=== PATIENT | male | born 1945 | race Caucasian/White ===

== ENCOUNTER 2017-01-18 13:14 | Inpatient (IN) | payer OTHER, BC ==
[~2017-01-18] VITALS: Ht 167.6 cm; Wt 69.6 kg
[~2017-01-18 13:14] MED LIST: APRESOLINE25 MG PO; B-COMPLEX-VITA1 EACH PO; BUMEX2 MG PO; COENZYME Q10200 M2 PO; COUMADIN2 MG PO; DAILY VALUE1 EACH PO; KLOR-CON M2020 MEQ PO; LANOXIN125 MCG PO; METOLAZONE2.5 MG PO; NORVASC10 MG PO; PROCRIT40000 UNI1 SC; ROCALTROL0.25 MCG PO; TOPROL XL50 MG PO
[2017-01-18 13:41] VITALS: BP 148/68
[2017-01-18 14:00] LABS: MCH 28.2 PG (29.0-34.0); MEAN PLAT.VOLUME 9.8 uM^3 (9.0-12.4); PLATELET COUNT 113 K/uL (156-360); RBC DIS.WIDTH-SD 54.4 % (39-53); RED BLOOD COUNT 3.41 M/uL (4.00-5.50); WHITE BLOOD COUNT 6.2 K/uL (4.1-10.2)
[2017-01-18 14:21] LABS: PROTHROMBIN TIME 21.9 (9.2-11.2); PTT 49.9 (25-32)
[2017-01-18 14:22] LABS: INTER. NORMALIZED RATIO 2.1
[2017-01-18 14:44] LABS: ANION GAP 13 MEQ/L (2-14); CHLORIDE 89 MEQ/L (99-109); GFR ESTIMATE (CALCULATED) 20 mL/min/; GLUCOSE 99 mg/dL (70-99); POTASSIUM 3.2 MEQ/L (3.7-5.4); SAMPLE HEMOLYSIS CHECK 0; SAMPLE ICTERIC CHECK 0; SAMPLE LIPEMIA CHECK 0; SODIUM 137 MEQ/L (136-147)
[2017-01-18 14:45] LABS: UREA NITROGEN (BUN) 124 mg/dL (9-23)
[2017-01-18] MEDS ORDERED: NORCO 5/3251 TABLET PO (17:27)
[2017-01-18 18:10] VITALS: BP 130/60
[2017-01-18 19:26] VITALS: BP 136/63
[2017-01-18 21:43] VITALS: BP 133/61
[2017-01-19] VITALS (10 sets, daily range): BP systolic 110–143; BP diastolic 52–66
[2017-01-19 06:44] LABS: HEMATOCRIT 27.6 % (38.0-50.0); MCH 28.4 PG (29.0-34.0); MCHC 31.9 G/DL (30.0-36.0); MEAN PLAT.VOLUME 10.9 uM^3 (9.0-12.4); PLATELET COUNT 128 K/uL (156-360); RBC DIS.WIDTH-CV 17.4 % (11.8-14.6); RBC DIS.WIDTH-SD 56.3 % (39-53); WHITE BLOOD COUNT 9.5 K/uL (4.1-10.2)
[2017-01-19 07:19] LABS: INTER. NORMALIZED RATIO 1.8; PROTHROMBIN TIME 18.9 (9.2-11.2); PTT 37.2 (25-32)
[2017-01-20 07:20] VITALS: BP 144/57
[2017-01-20 07:38] LABS: HEMATOCRIT 26.3 % (38.0-50.0); MCH 27.9 PG (29.0-34.0); MCHC 31.2 G/DL (30.0-36.0); MCV 89.5 FL (86-99); MEAN PLAT.VOLUME 10.6 uM^3 (9.0-12.4); PLATELET COUNT 147 K/uL (156-360); RBC DIS.WIDTH-CV 17.5 % (11.8-14.6); RBC DIS.WIDTH-SD 56.2 % (39-53); RED BLOOD COUNT 2.94 M/uL (4.00-5.50)
[2017-01-20 07:53] LABS: INTER. NORMALIZED RATIO 1.7; PROTHROMBIN TIME 17.8 (9.2-11.2); PTT 38.1 (25-32)
[2017-01-20 08:23] LABS: ANION GAP 8 MEQ/L (2-14); CHLORIDE 85 MEQ/L (99-109); GFR ESTIMATE (CALCULATED) 17 mL/min/; GLUCOSE 107 mg/dL (70-99); MAGNESIUM 2.6 mg/dl (1.3-2.7); POTASSIUM 3.7 MEQ/L (3.7-5.4); SAMPLE HEMOLYSIS CHECK 0; SAMPLE ICTERIC CHECK 0; SAMPLE LIPEMIA CHECK 0; SODIUM 131 MEQ/L (136-147)
[2017-01-20 08:24] LABS: UREA NITROGEN (BUN) 123 mg/dL (9-23)
[2017-01-20 11:22] VITALS: BP 132/63
[2017-01-20] MEDS ORDERED: LOVENOX80 MG/0.8 SC (14:12)
[2017-01-20 15:35] VITALS: BP 123/60
== END 2017-01-20 17:06 | disposition home or self-care (01) | DRG 939 ==
LOC: SDC 13:14 → 2EAST 19:42 → 2SOUTH 19:42 → 2EAST 20:51
PROVIDERS: Surgery
PROC: 0WHG43Z Insertion of Infusion Device into Peritoneal Cavity, Percutaneous Endoscopic Approach (ICD-10-PCS; 2017-01-18)
PROC: 0HQ7XZZ Repair Abdomen Skin, External Approach (ICD-10-PCS; principal; 2017-01-20)
DX: R79.1 Abnormal coagulation profile (principal); L76.22 Postprocedural hemorrhage of skin and subcutaneous tissue following other procedure; T45.515A Adverse effect of anticoagulants, initial encounter; I13.2 Hypertensive heart and chronic kidney disease with heart failure and with stage 5 chronic kidney disease, or end stage renal disease; N18.6 End stage renal disease; I50.9 Heart failure, unspecified; I48.91 Unspecified atrial fibrillation; K21.9 Gastro-esophageal reflux disease without esophagitis; I27.2 Other secondary pulmonary hypertension; E78.5 Hyperlipidemia, unspecified; G47.30 Sleep apnea, unspecified; Z99.81 Dependence on supplemental oxygen; Z87.891 Personal history of nicotine dependence; Z95.2 Presence of prosthetic heart valve; Z79.01 Long term (current) use of anticoagulants; Z86.14 Personal history of Methicillin resistant Staphylococcus aureus infection
CPT/HCPCS: 80048; 83735; 84100; 85027; 85610; 85730; 87641; 94799; C1750; G0378; J0330; J0690; J2405; J2597; J2710; J3010; J7040; J7050; S0020

== ENCOUNTER 2017-01-22 13:50 | Inpatient (IN) | payer OTHER, BC ==
[~2017-01-22] VITALS: Ht 165.1 cm; Wt 70.9 kg
[~2017-01-22 13:50] MED LIST changes: +LOVENOX80 MG/0.8 SC; +NORCO 5/3251 TABLET PO
[2017-01-22 14:26] LABS: HEMATOCRIT 23.7 % (38.0-50.0); MCHC 31.2 G/DL (30.0-36.0); MCV 89.8 FL (86-99); PLATELET COUNT 133 K/uL (156-360); RBC DIS.WIDTH-CV 17.8 % (11.8-14.6); RBC DIS.WIDTH-SD 57.3 % (39-53); RED BLOOD COUNT 2.64 M/uL (4.00-5.50); WHITE BLOOD COUNT 6.5 K/uL (4.1-10.2)
[2017-01-22 14:34] LABS: CHLORIDE 91 mEq/L (99-109); POTASSIUM 3.7 mEq/L (3.7-5.4); SODIUM 136 mEq/L (136-147)
[2017-01-22 14:35] LABS: INTER. NORMALIZED RATIO 1.4; PROTHROMBIN TIME 14.8 (9.2-11.2)
[2017-01-22 14:37] LABS: ANION GAP 13 MEQ/L (2-14)
[2017-01-22 14:39] LABS: GLUCOSE 169 mg/dL (70-99)
[2017-01-22 14:40] LABS: GFR ESTIMATE (CALCULATED) 15 mL/min/
[2017-01-22 14:46] LABS: TROP-I INTERPRETATION NEGATIVE; TROPONIN-I 0.05 ng/mL (0.0-0.30)
[2017-01-22 14:57] LABS: UREA NITROGEN (BUN) 150 mg/dL (9-23)
[2017-01-22] MEDS ORDERED: POTASSIUM CHLO10 ME4 PO (15:28)
[2017-01-22] MEDS ORDERED: ENOXAPARIN80 MG/0.8 SC (15:29)
[2017-01-22 16:24] VITALS: BP 155/65
[2017-01-23 00:05] VITALS: BP 134/63
[2017-01-23 06:34] LABS: HEMATOCRIT 23.1 % (38.0-50.0); MCH 28.7 PG (29.0-34.0); MCHC 31.6 G/DL (30.0-36.0); MCV 90.9 FL (86-99); MEAN PLAT.VOLUME 10.3 uM^3 (9.0-12.4); PLATELET COUNT 133 K/uL (156-360); RBC DIS.WIDTH-CV 18.4 % (11.8-14.6); RBC DIS.WIDTH-SD 59.2 % (39-53); RED BLOOD COUNT 2.54 M/uL (4.00-5.50)
[2017-01-23 07:41] LABS: ANION GAP 10 MEQ/L (2-14); CHLORIDE 92 MEQ/L (99-109); GFR ESTIMATE (CALCULATED) 18 mL/min/; MAGNESIUM 2.5 mg/dl (1.3-2.7); POTASSIUM 3.8 MEQ/L (3.7-5.4); SAMPLE HEMOLYSIS CHECK 0; SAMPLE ICTERIC CHECK 0; SAMPLE LIPEMIA CHECK 0; SODIUM 137 MEQ/L (136-147)
[2017-01-23 07:42] LABS: GLUCOSE 120 mg/dL (70-99); UREA NITROGEN (BUN) 117 mg/dL (9-23)
[2017-01-23 08:41] VITALS: BP 149/70
[2017-01-23 10:24] LABS: INTER. NORMALIZED RATIO 1.5; PROTHROMBIN TIME 15.6 (9.2-11.2)
[2017-01-23 11:23] LABS: HBSG INDEX 0.21
[2017-01-23 11:24] LABS: HPCA INDEX 0.18
[2017-01-23 11:25] LABS: AHBS INDEX 0; HEPATITIS B SURFACE ANTIBODY Nonreactive
[2017-01-23 11:30] LABS: ANTI-HEPATITIS B CORE (TOTAL) Nonreactive; HBCT INDEX 0.09
[2017-01-23 13:21] LABS: INTER. NORMALIZED RATIO 1.5; PROTHROMBIN TIME 15.7 (9.2-11.2)
[2017-01-23 16:30] VITALS: BP 129/60
[2017-01-23 22:53] VITALS: BP 139/63
[2017-01-24 04:00] VITALS: BP 126/61
[2017-01-24 07:06] VITALS: BP 150/67
[2017-01-24 07:45] LABS: EOSINOPHIL (%) 0.7 % (0-5); HEMATOCRIT 23.9 % (38.0-50.0); IMMATURE GRANULOCYTE (%) 0.5 % (0.0-0.7); INSTRUMENT ABS NEUTROPHIL CT 4.7 K/uL; LYMPHOCYTE COUNT 0.3 K/uL (1.0-2.8); MCH 28.6 PG (29.0-34.0); MCHC 31.4 G/DL (30.0-36.0); MCV 91.2 FL (86-99); MEAN PLAT.VOLUME 10.2 uM^3 (9.0-12.4); MONOCYTE (%) 16.8 % (3-12); NEUTROPHIL (%) 77.3 % (45-76); NEUTROPHIL COUNT 4.7 K/uL (1.8-6.4); NRBC (%) 0.3 /100 WBC (0-0); PLATELET COUNT 138 K/uL (156-360); RBC DIS.WIDTH-CV 18.7 % (11.8-14.6); RBC DIS.WIDTH-SD 60.6 % (39-53); RED BLOOD COUNT 2.62 M/uL (4.00-5.50); WHITE BLOOD COUNT 6.1 K/uL (4.1-10.2)
[2017-01-24 07:56] LABS: INTER. NORMALIZED RATIO 1.6; PROTHROMBIN TIME 16.4 (9.2-11.2); PTT 45.9 (25-32)
[2017-01-24 08:23] LABS: ANION GAP 11 MEQ/L (2-14); CHLORIDE 93 MEQ/L (99-109); GFR ESTIMATE (CALCULATED) 22 mL/min/; GLUCOSE 92 mg/dL (70-99); POTASSIUM 3.9 MEQ/L (3.7-5.4); SAMPLE HEMOLYSIS CHECK 0; SAMPLE ICTERIC CHECK 0; SAMPLE LIPEMIA CHECK 0; SODIUM 135 MEQ/L (136-147)
[2017-01-24 08:29] LABS: UREA NITROGEN (BUN) 106 mg/dL (9-23)
[2017-01-24 13:43] LABS: INTER. NORMALIZED RATIO 1.5; PROTHROMBIN TIME 15.3 (9.2-11.2)
[2017-01-24 13:44] VITALS: BP 145/63
[2017-01-24 15:01] LABS: PTT 32.5 (25-32)
[2017-01-24 16:22] VITALS: BP 126/59
[2017-01-24 22:07] VITALS: BP 164/70
[2017-01-24 22:27] VITALS: BP 156/70
[2017-01-25 00:04] VITALS: BP 146/66
[2017-01-25 00:44] VITALS: BP 140/78
[2017-01-25 04:54] LABS: EOSINOPHIL (%) 1.2 % (0-5); EOSINOPHIL COUNT 0.1 K/uL (0-0.3); HEMATOCRIT 28.1 % (38.0-50.0); IMMATURE GRANULOCYTE (%) 0.7 % (0.0-0.7); INSTRUMENT ABS NEUTROPHIL CT 4.5 K/uL; LYMPHOCYTE COUNT 0.3 K/uL (1.0-2.8); MCH 28.9 PG (29.0-34.0); MCHC 32.7 G/DL (30.0-36.0); MCV 88.4 FL (86-99); MEAN PLAT.VOLUME 10.1 uM^3 (9.0-12.4); MONOCYTE (%) 17.3 % (3-12); NEUTROPHIL (%) 75.6 % (45-76); NEUTROPHIL COUNT 4.5 K/uL (1.8-6.4); PLATELET COUNT 119 K/uL (156-360); RBC DIS.WIDTH-CV 17.8 % (11.8-14.6); RBC DIS.WIDTH-SD 55.9 % (39-53)
[2017-01-25 04:57] LABS: RED BLOOD COUNT 3.18 M/uL (4.00-5.50)
[2017-01-25 05:02] LABS: CHLORIDE 96 mEq/L (99-109); POTASSIUM 3.8 mEq/L (3.7-5.4); SODIUM 135 mEq/L (136-147)
[2017-01-25 05:04] LABS: GLUCOSE 87 mg/dL (70-99)
[2017-01-25 05:05] LABS: ANION GAP 12 MEQ/L (2-14)
[2017-01-25 05:07] VITALS: BP 144/65
[2017-01-25 05:08] LABS: GFR ESTIMATE (CALCULATED) 30 mL/min/; UREA NITROGEN (BUN) 60 mg/dL (9-23)
[2017-01-25 05:20] LABS: INTER. NORMALIZED RATIO 1.6; PROTHROMBIN TIME 16.1 (9.2-11.2)
[2017-01-25 11:23] LABS: INTER. NORMALIZED RATIO 1.6; PROTHROMBIN TIME 16.2 (9.2-11.2)
[2017-01-25 15:56] VITALS: BP 122/85
[2017-01-26] VITALS (7 sets, daily range): BP systolic 121–140; BP diastolic 58–65
[2017-01-26 06:42] LABS: EOSINOPHIL (%) 1.6 % (0-5); EOSINOPHIL COUNT 0.1 K/uL (0-0.3); HEMATOCRIT 29.8 % (38.0-50.0); IMMATURE GRANULOCYTE (%) 0.5 % (0.0-0.7); INSTRUMENT ABS NEUTROPHIL CT 4.5 K/uL; LYMPHOCYTE COUNT 0.5 K/uL (1.0-2.8); MCH 29.6 PG (29.0-34.0); MCHC 32.6 G/DL (30.0-36.0); MCV 90.9 FL (86-99); MEAN PLAT.VOLUME 10.1 uM^3 (9.0-12.4); MONOCYTE (%) 17.3 % (3-12); MONOCYTE COUNT 1.1 K/uL (0-0.8); NEUTROPHIL (%) 72.2 % (45-76); NEUTROPHIL COUNT 4.5 K/uL (1.8-6.4); PLATELET COUNT 117 K/uL (156-360); RBC DIS.WIDTH-SD 58.9 % (39-53); RED BLOOD COUNT 3.28 M/uL (4.00-5.50); WHITE BLOOD COUNT 6.2 K/uL (4.1-10.2)
[2017-01-26 07:01] LABS: ANION GAP 7 MEQ/L (2-14); CHLORIDE 99 MEQ/L (99-109); GFR ESTIMATE (CALCULATED) 33 mL/min/; GLUCOSE 88 mg/dL (70-99); POTASSIUM 3.9 MEQ/L (3.7-5.4); SAMPLE HEMOLYSIS CHECK 0; SAMPLE ICTERIC CHECK 0; SAMPLE LIPEMIA CHECK 0; SODIUM 133 MEQ/L (136-147); UREA NITROGEN (BUN) 43 mg/dL (9-23)
[2017-01-26 14:03] LABS: INTER. NORMALIZED RATIO 1.6
[2017-01-27 03:33] VITALS: BP 129/68
[2017-01-27 07:27] VITALS: BP 142/62
[2017-01-27 07:55] LABS: EOSINOPHIL (%) 1.4 % (0-5); EOSINOPHIL COUNT 0.1 K/uL (0-0.3); HEMATOCRIT 26.5 % (38.0-50.0); IMMATURE GRANULOCYTE (%) 0.5 % (0.0-0.7); INSTRUMENT ABS NEUTROPHIL CT 4.7 K/uL; LYMPHOCYTE COUNT 0.3 K/uL (1.0-2.8); MCH 28.7 PG (29.0-34.0); MCHC 32.1 G/DL (30.0-36.0); MCV 89.5 FL (86-99); MEAN PLAT.VOLUME 9.5 uM^3 (9.0-12.4); MONOCYTE (%) 13.6 % (3-12); MONOCYTE COUNT 0.8 K/uL (0-0.8); NEUTROPHIL (%) 79.4 % (45-76); NEUTROPHIL COUNT 4.7 K/uL (1.8-6.4); PLATELET COUNT 130 K/uL (156-360); RBC DIS.WIDTH-CV 17.7 % (11.8-14.6); RBC DIS.WIDTH-SD 56.6 % (39-53); RED BLOOD COUNT 2.96 M/uL (4.00-5.50); WHITE BLOOD COUNT 5.9 K/uL (4.1-10.2)
[2017-01-27 08:03] LABS: ANION GAP 7 MEQ/L (2-14); CHLORIDE 94 MEQ/L (99-109); POTASSIUM 3.8 MEQ/L (3.7-5.4); SAMPLE HEMOLYSIS CHECK 0; SAMPLE ICTERIC CHECK 0; SAMPLE LIPEMIA CHECK 0; SODIUM 129 MEQ/L (136-147)
[2017-01-27 08:22] LABS: GFR ESTIMATE (CALCULATED) 26 mL/min/; UREA NITROGEN (BUN) 50 mg/dL (9-23)
[2017-01-27 08:30] LABS: GLUCOSE 152 mg/dL (70-99)
[2017-01-27 09:19] LABS: INTER. NORMALIZED RATIO 1.7; PROTHROMBIN TIME 17.4 (9.2-11.2); PTT 58.2 (25-32)
[2017-01-27 12:00] VITALS: BP 140/66
[2017-01-27 12:44] LABS: INTER. NORMALIZED RATIO 1.7; PROTHROMBIN TIME 17.7 (9.2-11.2); PTT 61.3 (25-32)
[2017-01-27 15:48] VITALS: BP 139/63
[2017-01-27 19:56] VITALS: BP 125/58
[2017-01-27 23:28] VITALS: BP 142/65
[2017-01-28 06:50] LABS: INTER. NORMALIZED RATIO 1.8; PROTHROMBIN TIME 18.7 (9.2-11.2); PTT 67.9 (25-32)
[2017-01-28 07:55] VITALS: BP 140/63
[2017-01-28 12:00] VITALS: BP 131/75
[2017-01-28 16:08] VITALS: BP 134/65
[2017-01-28 22:47] VITALS: BP 130/86
[2017-01-29 04:16] LABS: HEMATOCRIT 26.3 % (38.0-50.0); MCH 29.1 PG (29.0-34.0); MCHC 32.7 G/DL (30.0-36.0); MCV 88.9 FL (86-99); MEAN PLAT.VOLUME 9.8 uM^3 (9.0-12.4); NRBC (%) 0.3 /100 WBC (0-0); PLATELET COUNT 121 K/uL (156-360); RBC DIS.WIDTH-CV 17.2 % (11.8-14.6); RBC DIS.WIDTH-SD 55.2 % (39-53); RED BLOOD COUNT 2.96 M/uL (4.00-5.50); WHITE BLOOD COUNT 6.8 K/uL (4.1-10.2)
[2017-01-29 04:26] LABS: INTER. NORMALIZED RATIO 1.8; PROTHROMBIN TIME 19.1 (9.2-11.2)
[2017-01-29 04:52] LABS: CHLORIDE 96 mEq/L (99-109); POTASSIUM 3.8 mEq/L (3.7-5.4); SODIUM 130 mEq/L (136-147)
[2017-01-29 04:53] LABS: MAGNESIUM 1.7 mg/dL (1.3-2.7)
[2017-01-29 04:56] LABS: ANION GAP 12 MEQ/L (2-14)
[2017-01-29 04:58] LABS: GFR ESTIMATE (CALCULATED) 28 mL/min/
[2017-01-29 04:59] LABS: UREA NITROGEN (BUN) 42 mg/dL (9-23)
[2017-01-29 05:07] LABS: GLUCOSE 91 mg/dL (70-99)
[2017-01-29 07:29] VITALS: BP 152/65
[2017-01-29 16:11] VITALS: BP 125/61
[2017-01-29 19:22] VITALS: BP 117/58
[2017-01-30 00:01] VITALS: BP 135/65
[2017-01-30 03:45] VITALS: BP 129/69
[2017-01-30 06:40] VITALS: BP 128/56
[2017-01-30 08:10] LABS: EOSINOPHIL (%) 0.8 % (0-5); EOSINOPHIL COUNT 0.1 K/uL (0-0.3); HEMATOCRIT 23.6 % (38.0-50.0); IMMATURE GRANULOCYTE (%) 0.5 % (0.0-0.7); INSTRUMENT ABS NEUTROPHIL CT 4.5 K/uL; LYMPHOCYTE COUNT 0.3 K/uL (1.0-2.8); MCH 28.8 PG (29.0-34.0); MCHC 32.6 G/DL (30.0-36.0); MCV 88.4 FL (86-99); MONOCYTE (%) 19.6 % (3-12); MONOCYTE COUNT 1.2 K/uL (0-0.8); NEUTROPHIL (%) 74.7 % (45-76); NEUTROPHIL COUNT 4.5 K/uL (1.8-6.4); PLATELET COUNT 118 K/uL (156-360); RBC DIS.WIDTH-CV 17.2 % (11.8-14.6); RBC DIS.WIDTH-SD 55.9 % (39-53); RED BLOOD COUNT 2.67 M/uL (4.00-5.50)
[2017-01-30 08:28] LABS: ANION GAP 8 MEQ/L (2-14); CHLORIDE 92 MEQ/L (99-109); GFR ESTIMATE (CALCULATED) 27 mL/min/; POTASSIUM 3.3 MEQ/L (3.7-5.4); SAMPLE HEMOLYSIS CHECK 0; SAMPLE ICTERIC CHECK 0; SAMPLE LIPEMIA CHECK 0; SODIUM 127 MEQ/L (136-147); UREA NITROGEN (BUN) 51 mg/dL (9-23)
[2017-01-30 08:29] LABS: GLUCOSE 120 mg/dL (70-99)
[2017-01-30 10:21] LABS: PROTHROMBIN TIME 20.6 (9.2-11.2); PTT 68.9 (25-32)
[2017-01-30 15:28] VITALS: BP 114/56
[2017-01-30 23:37] VITALS: BP 117/57
[2017-01-31 06:37] LABS: EOSINOPHIL (%) 0.5 % (0-5); HEMATOCRIT 24.4 % (38.0-50.0); IMMATURE GRANULOCYTE (%) 0.6 % (0.0-0.7); INSTRUMENT ABS NEUTROPHIL CT 4.9 K/uL; LYMPHOCYTE COUNT 0.2 K/uL (1.0-2.8); MCH 29.7 PG (29.0-34.0); MCHC 32.8 G/DL (30.0-36.0); MCV 90.7 FL (86-99); MEAN PLAT.VOLUME 9.9 uM^3 (9.0-12.4); MONOCYTE COUNT 1.1 K/uL (0-0.8); NEUTROPHIL (%) 77.1 % (45-76); NEUTROPHIL COUNT 4.9 K/uL (1.8-6.4); PLATELET COUNT 115 K/uL (156-360); RBC DIS.WIDTH-CV 17.2 % (11.8-14.6); RBC DIS.WIDTH-SD 57.5 % (39-53); RED BLOOD COUNT 2.69 M/uL (4.00-5.50); WHITE BLOOD COUNT 6.4 K/uL (4.1-10.2)
[2017-01-31 06:48] VITALS: BP 137/60
[2017-01-31 07:14] LABS: INTER. NORMALIZED RATIO 2.3; PROTHROMBIN TIME 24.4 (9.2-11.2)
[2017-01-31 07:31] LABS: ANION GAP 7 MEQ/L (2-14); CHLORIDE 99 MEQ/L (99-109); GFR ESTIMATE (CALCULATED) 28 mL/min/; POTASSIUM 3.9 MEQ/L (3.7-5.4); SAMPLE HEMOLYSIS CHECK 0; SAMPLE ICTERIC CHECK 0; SAMPLE LIPEMIA CHECK 0; UREA NITROGEN (BUN) 35 mg/dL (9-23)
[2017-01-31 07:33] LABS: GLUCOSE 87 mg/dL (70-99); SODIUM 134 MEQ/L (136-147)
[2017-01-31 15:20] VITALS: BP 131/61
[2017-01-31 20:20] VITALS: BP 138/76
[2017-02-01 03:23] VITALS: BP 126/62
[2017-02-01 08:01] VITALS: BP 128/60
[2017-02-01 08:33] LABS: EOSINOPHIL (%) 0.8 % (0-5); EOSINOPHIL COUNT 0.1 K/uL (0-0.3); HEMATOCRIT 23.2 % (38.0-50.0); IMMATURE GRANULOCYTE (%) 0.3 % (0.0-0.7); LYMPHOCYTE COUNT 0.3 K/uL (1.0-2.8); MCH 29.1 PG (29.0-34.0); MCHC 32.3 G/DL (30.0-36.0); MCV 89.9 FL (86-99); MEAN PLAT.VOLUME 9.9 uM^3 (9.0-12.4); MONOCYTE (%) 15.2 % (3-12); NEUTROPHIL (%) 79.2 % (45-76); PLATELET COUNT 135 K/uL (156-360); RBC DIS.WIDTH-CV 16.8 % (11.8-14.6); RBC DIS.WIDTH-SD 55.8 % (39-53); RED BLOOD COUNT 2.58 M/uL (4.00-5.50); WHITE BLOOD COUNT 6.3 K/uL (4.1-10.2)
[2017-02-01 09:06] LABS: ANION GAP 9 MEQ/L (2-14); CHLORIDE 97 MEQ/L (99-109); GFR ESTIMATE (CALCULATED) 27 mL/min/; POTASSIUM 3.6 MEQ/L (3.7-5.4); SAMPLE HEMOLYSIS CHECK 0; SAMPLE ICTERIC CHECK 0; SAMPLE LIPEMIA CHECK 0; SODIUM 132 MEQ/L (136-147); UREA NITROGEN (BUN) 50 mg/dL (9-23)
[2017-02-01 09:08] LABS: GLUCOSE 141 mg/dL (70-99)
[2017-02-01 09:29] LABS: INTER. NORMALIZED RATIO 2.8; PROTHROMBIN TIME 31.6 SEC (10.2-12.9)
[2017-02-01 14:26] LABS: EOSINOPHIL (%) 0.6 % (0-5); HEMATOCRIT 24.7 % (38.0-50.0); IMMATURE GRANULOCYTE (%) 0.3 % (0.0-0.7); INSTRUMENT ABS NEUTROPHIL CT 5.4 K/uL; LYMPHOCYTE COUNT 0.3 K/uL (1.0-2.8); MCH 29.7 PG (29.0-34.0); MCHC 33.2 G/DL (30.0-36.0); MCV 89.5 FL (86-99); MEAN PLAT.VOLUME 9.7 uM^3 (9.0-12.4); MONOCYTE (%) 17.7 % (3-12); MONOCYTE COUNT 1.2 K/uL (0-0.8); NEUTROPHIL COUNT 5.4 K/uL (1.8-6.4); PLATELET COUNT 158 K/uL (156-360); RBC DIS.WIDTH-CV 16.8 % (11.8-14.6); RBC DIS.WIDTH-SD 54.4 % (39-53); RED BLOOD COUNT 2.76 M/uL (4.00-5.50)
== END 2017-02-01 14:45 | disposition home health service (06) | DRG 919 ==
LOC: EME 13:50 → EDOF 14:46 → 5EAST 14:46
PROVIDERS: Emergency Medicine; Internal Medicine Nephrology; Physician Assistant; Surgery
DX: I97.618 Postprocedural hemorrhage of a circulatory system organ or structure following other circulatory system procedure (principal); N18.6 End stage renal disease; L76.32 Postprocedural hematoma of skin and subcutaneous tissue following other procedure; I13.2 Hypertensive heart and chronic kidney disease with heart failure and with stage 5 chronic kidney disease, or end stage renal disease; E87.1 Hypo-osmolality and hyponatremia; D58.9 Hereditary hemolytic anemia, unspecified; D63.1 Anemia in chronic kidney disease; E78.5 Hyperlipidemia, unspecified; G47.30 Sleep apnea, unspecified; I50.9 Heart failure, unspecified; Z99.2 Dependence on renal dialysis; R79.1 Abnormal coagulation profile; T45.515A Adverse effect of anticoagulants, initial encounter; Y81.2 Prosthetic and other implants, materials and accessory general- and plastic-surgery devices associated with adverse incidents; I25.10 Atherosclerotic heart disease of native coronary artery without angina pectoris; I48.2 Chronic atrial fibrillation; K21.9 Gastro-esophageal reflux disease without esophagitis; Z99.81 Dependence on supplemental oxygen; Z79.01 Long term (current) use of anticoagulants; Z86.14 Personal history of Methicillin resistant Staphylococcus aureus infection; Z87.891 Personal history of nicotine dependence; Z95.2 Presence of prosthetic heart valve; Z80.1 Family history of malignant neoplasm of trachea, bronchus and lung; Z82.49 Family history of ischemic heart disease and other diseases of the circulatory system
CPT/HCPCS: 71010; 76705; 80048; 83735; 84100; 84484; 85025; 85025 91; 85027; 85610; 85730; 86704; 86706; 86803; 86900; 86901; 86920; 87340; 93005; 94799; 99281; 99285; C1788; J0131; J0690; J0881; J1644; J3010; P9016

== ENCOUNTER 2017-02-23 09:27 | Inpatient (IN) | payer OTHER, BC ==
[~2017-02-23] VITALS: Ht 167.6 cm; Wt 62.2 kg
[~2017-02-23 09:27] MED LIST changes: +ENOXAPARIN80 MG/0.8 SC; +POTASSIUM CHLO10 ME4 PO; +PROCRIT40000 UNI1 IV
[2017-02-23 09:55] VITALS: BP 145/67
[2017-02-23 10:20] LABS: HEMATOCRIT 32.3 % (38.0-50.0); MCH 27.5 PG (29.0-34.0); MCHC 30.7 G/DL (30.0-36.0); MCV 89.7 FL (86-99); MEAN PLAT.VOLUME 9.2 uM^3 (9.0-12.4); PLATELET COUNT 120 K/uL (156-360); RBC DIS.WIDTH-CV 15.9 % (11.8-14.6); WHITE BLOOD COUNT 4.3 K/uL (4.1-10.2)
[2017-02-23 10:30] LABS: INTER. NORMALIZED RATIO 1.4; PROTHROMBIN TIME 15.5 SEC (10.2-12.9)
[2017-02-23 10:33] LABS: PTT 35.4 SEC (25-37)
[2017-02-23 11:05] LABS: ANION GAP 6 MEQ/L (2-14); CHLORIDE 97 MEQ/L (99-109); POTASSIUM 4.1 MEQ/L (3.7-5.4); SAMPLE HEMOLYSIS CHECK 0; SAMPLE ICTERIC CHECK 0; SAMPLE LIPEMIA CHECK 0; SODIUM 135 MEQ/L (136-147)
[2017-02-23 11:10] LABS: GFR ESTIMATE (CALCULATED) 27 mL/min/; GLUCOSE 89 mg/dL (70-99); UREA NITROGEN (BUN) 31 mg/dL (9-23)
[2017-02-23 11:11] LABS: METH RESISTANT S AUREUS PCR NEGATIVE (NEGATIVE)
[2017-02-23 11:16] LABS: PROBE CHECK PASS; SPECIMEN PROCESSING CONTROL PASS
[2017-02-23 11:35] LABS: DIGOXIN 1.2 ng/mL (0.8-2.0)
[2017-02-23 14:32] VITALS: BP 150/66
[2017-02-23 20:42] VITALS: BP 125/58
[2017-02-24 00:59] VITALS: BP 136/62
[2017-02-24 03:15] LABS: INTER. NORMALIZED RATIO 1.4; PROTHROMBIN TIME 15.2 SEC (10.2-12.9)
[2017-02-24 04:18] VITALS: BP 139/62
[2017-02-24 07:15] VITALS: BP 146/67
[2017-02-24 11:50] VITALS: BP 143/63
[2017-02-24 15:45] LABS: INTER. NORMALIZED RATIO 1.4; PROTHROMBIN TIME 15.5 SEC (10.2-12.9)
[2017-02-24 15:48] LABS: PTT 51.5 SEC (25-37)
[2017-02-25 01:02] VITALS: BP 131/60
[2017-02-25 06:14] LABS: HEMATOCRIT 31.4 % (38.0-50.0); MCH 28.8 PG (29.0-34.0); MCHC 32.5 G/DL (30.0-36.0); MCV 88.7 FL (86-99); MEAN PLAT.VOLUME 9.9 uM^3 (9.0-12.4); PLATELET COUNT 134 K/uL (156-360); RBC DIS.WIDTH-CV 15.9 % (11.8-14.6); RBC DIS.WIDTH-SD 50.7 % (39-53); RED BLOOD COUNT 3.54 M/uL (4.00-5.50); WHITE BLOOD COUNT 4.5 K/uL (4.1-10.2)
[2017-02-25 06:39] LABS: PTT 64.7 SEC (25-37)
[2017-02-25 06:41] LABS: ANION GAP 10 MEQ/L (2-14); CHLORIDE 97 MEQ/L (99-109); GFR ESTIMATE (CALCULATED) 19 mL/min/; GLUCOSE 78 mg/dL (70-99); POTASSIUM 3.5 MEQ/L (3.7-5.4); SAMPLE HEMOLYSIS CHECK 0; SAMPLE ICTERIC CHECK 0; SAMPLE LIPEMIA CHECK 0; SODIUM 136 MEQ/L (136-147)
[2017-02-25 06:46] LABS: UREA NITROGEN (BUN) 55 mg/dL (9-23)
[2017-02-25 06:54] LABS: ABS NEUTROPHIL COUNT 3.8; BASOPHILS 0.9 %; EOSINOPHIL ABS CT 0.1; EOSINOPHILS 2.6 % (0-5.0); INSTRUMENT ABS NEUTROPHIL CT 3.2 K/uL; LYMPHOCYTES 5.2 % (15.0-45.0); SEG.NEUTROPHILS 83.5 % (46.0-76.0); SMUDGE CELLS 1.7
[2017-02-25 08:25] VITALS: BP 155/68
[2017-02-25 10:38] LABS: INTER. NORMALIZED RATIO 1.5; PROTHROMBIN TIME 16.6 SEC (10.2-12.9)
[2017-02-25 14:47] LABS: INTER. NORMALIZED RATIO 1.5; PROTHROMBIN TIME 16.9 SEC (10.2-12.9)
[2017-02-25 14:50] LABS: PTT 55.8 SEC (25-37)
[2017-02-25 16:04] VITALS: BP 130/59
[2017-02-25 23:25] VITALS: BP 131/60
[2017-02-26 02:32] LABS: HEMATOCRIT 28.4 % (38.0-50.0); MCH 28.1 PG (29.0-34.0); MCV 87.7 FL (86-99); MEAN PLAT.VOLUME 9.3 uM^3 (9.0-12.4); PLATELET COUNT 126 K/uL (156-360); RBC DIS.WIDTH-CV 15.9 % (11.8-14.6); RBC DIS.WIDTH-SD 50.1 % (39-53); RED BLOOD COUNT 3.24 M/uL (4.00-5.50); WHITE BLOOD COUNT 5.6 K/uL (4.1-10.2)
[2017-02-26 07:03] LABS: INTER. NORMALIZED RATIO 1.8; PROTHROMBIN TIME 19.8 SEC (10.2-12.9)
[2017-02-26 08:30] LABS: EOSINOPHIL COUNT 0.1 K/uL (0-0.3); HEMATOCRIT 28.1 % (38.0-50.0); IMMATURE GRANULOCYTE (%) 0.6 % (0.0-0.7); INSTRUMENT ABS NEUTROPHIL CT 3.8 K/uL; LYMPHOCYTE COUNT 0.3 K/uL (1.0-2.8); MCH 28.5 PG (29.0-34.0); MCV 88.9 FL (86-99); MONOCYTE (%) 15.6 % (3-12); MONOCYTE COUNT 0.8 K/uL (0-0.8); NEUTROPHIL COUNT 3.8 K/uL (1.8-6.4); PLATELET COUNT 133 K/uL (156-360); RBC DIS.WIDTH-SD 50.8 % (39-53); RED BLOOD COUNT 3.16 M/uL (4.00-5.50)
[2017-02-26 10:02] LABS: PTT 83.2 SEC (25-37)
[2017-02-26 11:26] LABS: ANION GAP 10 MEQ/L (2-14); CHLORIDE 97 MEQ/L (99-109); POTASSIUM 3.2 MEQ/L (3.7-5.4); SAMPLE HEMOLYSIS CHECK 0; SAMPLE ICTERIC CHECK 0; SAMPLE LIPEMIA CHECK 0; SODIUM 137 MEQ/L (136-147)
[2017-02-26 11:32] LABS: GFR ESTIMATE (CALCULATED) 20 mL/min/; GLUCOSE 119 mg/dL (70-99); UREA NITROGEN (BUN) 67 mg/dL (9-23)
[2017-02-26 12:30] LABS: INTER. NORMALIZED RATIO 1.8; PROTHROMBIN TIME 20.5 SEC (10.2-12.9)
[2017-02-26 13:24] VITALS: BP 135/61
[2017-02-26 15:13] VITALS: BP 128/62
[2017-02-26 23:29] VITALS: BP 141/64
[2017-02-27 06:26] LABS: INTER. NORMALIZED RATIO 2.1; PROTHROMBIN TIME 23.3 SEC (10.2-12.9)
[2017-02-27 06:32] LABS: PTT 43.2 SEC (25-37)
[2017-02-27 08:00] VITALS: BP 153/68
[2017-02-27 13:49] LABS: INTER. NORMALIZED RATIO 2.2; PROTHROMBIN TIME 24.9 SEC (10.2-12.9)
[2017-02-27 13:57] LABS: PTT 93.9 SEC (25-37)
[2017-02-27 15:59] VITALS: BP 136/62
[2017-02-27 19:50] LABS: INTER. NORMALIZED RATIO 2.3; PROTHROMBIN TIME 26.4 SEC (10.2-12.9)
[2017-02-28 00:16] VITALS: BP 138/65
[2017-02-28 00:31] VITALS: BP 118/54
[2017-02-28 07:00] VITALS: BP 140/64
[2017-02-28 07:56] LABS: EOSINOPHIL (%) 2.3 % (0-5); EOSINOPHIL COUNT 0.1 K/uL (0-0.3); IMMATURE GRANULOCYTE (%) 0.7 % (0.0-0.7); INSTRUMENT ABS NEUTROPHIL CT 3.3 K/uL; LYMPHOCYTE COUNT 0.3 K/uL (1.0-2.8); MCH 29.6 PG (29.0-34.0); MCHC 32.9 G/DL (30.0-36.0); MEAN PLAT.VOLUME 9.8 uM^3 (9.0-12.4); MONOCYTE (%) 11.9 % (3-12); MONOCYTE COUNT 0.5 K/uL (0-0.8); NEUTROPHIL (%) 77.1 % (45-76); NEUTROPHIL COUNT 3.3 K/uL (1.8-6.4); PLATELET COUNT 121 K/uL (156-360); RBC DIS.WIDTH-CV 17.2 % (11.8-14.6); RBC DIS.WIDTH-SD 53.5 % (39-53); RED BLOOD COUNT 3.11 M/uL (4.00-5.50); WHITE BLOOD COUNT 4.3 K/uL (4.1-10.2)
[2017-02-28 09:56] LABS: ANION GAP 11 MEQ/L (2-14); CHLORIDE 98 MEQ/L (99-109); GFR ESTIMATE (CALCULATED) 22 mL/min/; GLUCOSE 152 mg/dL (70-99); POTASSIUM 3.6 MEQ/L (3.7-5.4); SAMPLE HEMOLYSIS CHECK 0; SAMPLE ICTERIC CHECK 0; SAMPLE LIPEMIA CHECK 0; SODIUM 135 MEQ/L (136-147); UREA NITROGEN (BUN) 58 mg/dL (9-23)
[2017-02-28 11:08] LABS: INTER. NORMALIZED RATIO 2.7; PROTHROMBIN TIME 30.8 SEC (10.2-12.9)
[2017-02-28 11:11] LABS: PTT 90.4 SEC (25-37)
[2017-02-28 11:59] VITALS: BP 138/63
== END 2017-02-28 13:06 | disposition home or self-care (01) | DRG 981 ==
LOC: SDC 09:27 → 2EASTP 13:06 → 2SOUTH 13:06 → ENRESERV 13:09 → 2EASTP 14:20
PROVIDERS: Internal Medicine Nephrology; Surgery
PROC: 0WPG03Z Removal of Infusion Device from Peritoneal Cavity, Open Approach (ICD-10-PCS; principal; 2017-02-23)
PROC: 5A1D60Z (ICD-10-PCS; 2017-02-26)
DX: I13.2 Hypertensive heart and chronic kidney disease with heart failure and with stage 5 chronic kidney disease, or end stage renal disease (principal); N18.6 End stage renal disease; Z49.02 Encounter for fitting and adjustment of peritoneal dialysis catheter; I50.9 Heart failure, unspecified; I48.91 Unspecified atrial fibrillation; R79.1 Abnormal coagulation profile; D58.9 Hereditary hemolytic anemia, unspecified; D63.1 Anemia in chronic kidney disease; E78.5 Hyperlipidemia, unspecified; G47.30 Sleep apnea, unspecified; I25.10 Atherosclerotic heart disease of native coronary artery without angina pectoris; Z99.81 Dependence on supplemental oxygen; Z79.01 Long term (current) use of anticoagulants; Z80.1 Family history of malignant neoplasm of trachea, bronchus and lung; Z82.49 Family history of ischemic heart disease and other diseases of the circulatory system; Z86.14 Personal history of Methicillin resistant Staphylococcus aureus infection; Z95.2 Presence of prosthetic heart valve
CPT/HCPCS: 80048; 80069; 80162; 85025; 85027; 85610; 85730; 87641; 94799; J0131; J0690; J0881; J1644; J7040; S0020

== ENCOUNTER 2017-03-16 11:31 | Day surgery (SDC) | payer OTHER, BC ==
[~2017-03-16] VITALS: Ht 167.6 cm; Wt 63.5 kg
[2017-03-16 12:19] LABS: HEMATOCRIT 37.7 % (38.0-50.0); MCH 28.9 PG (29.0-34.0); MCHC 31.8 G/DL (30.0-36.0); MCV 90.8 FL (86-99); MEAN PLAT.VOLUME 9.5 uM^3 (9.0-12.4); PLATELET COUNT 134 K/uL (156-360); RBC DIS.WIDTH-CV 18.4 % (11.8-14.6); RBC DIS.WIDTH-SD 58.6 % (39-53); WHITE BLOOD COUNT 5.4 K/uL (4.1-10.2)
[2017-03-16 12:24] LABS: ANION GAP 14 MEQ/L (2-14); CHLORIDE 96 MEQ/L (99-109); POTASSIUM 3.7 MEQ/L (3.7-5.4); SAMPLE HEMOLYSIS CHECK 0; SAMPLE ICTERIC CHECK 0; SAMPLE LIPEMIA CHECK 0; SODIUM 133 MEQ/L (136-147)
[2017-03-16 12:29] LABS: GFR ESTIMATE (CALCULATED) 18 mL/min/; GLUCOSE 98 mg/dL (70-99); UREA NITROGEN (BUN) 63 mg/dL (9-23)
[2017-03-16 12:40] VITALS: BP 146/63
[2017-03-16 12:40] LABS: INTER. NORMALIZED RATIO 1.8; PROTHROMBIN TIME 20.3 SEC (10.2-12.9)
[2017-03-16 12:44] LABS: PTT 41.2 SEC (25-37)
[2017-03-16] MEDS ORDERED: COUMADIN3 MG PO (13:31)
[2017-03-16 13:41] LABS: RED BLOOD COUNT 4.15 M/uL (4.00-5.50)
[2017-03-16 13:46] LABS: METH RESISTANT S AUREUS PCR NEGATIVE (NEGATIVE)
[2017-03-16 13:47] LABS: PROBE CHECK PASS; SPECIMEN PROCESSING CONTROL PASS
[2017-03-16 16:45] VITALS: BP 122/59
[2017-03-16 17:46] VITALS: BP 128/60
== END 2017-03-16 17:55 | disposition home or self-care (01) ==
LOC: SDC 11:31
PROVIDERS: Surgery
PROC: 03180JD Bypass Left Brachial Artery to Upper Arm Vein with Synthetic Substitute, Open Approach (ICD-10-PCS; principal; 2017-03-16)
DX: I13.2 Hypertensive heart and chronic kidney disease with heart failure and with stage 5 chronic kidney disease, or end stage renal disease (principal); N18.6 End stage renal disease; Z99.2 Dependence on renal dialysis; I25.10 Atherosclerotic heart disease of native coronary artery without angina pectoris; I48.91 Unspecified atrial fibrillation; Z95.2 Presence of prosthetic heart valve; Z79.01 Long term (current) use of anticoagulants; I50.9 Heart failure, unspecified; I08.0 Rheumatic disorders of both mitral and aortic valves; E78.5 Hyperlipidemia, unspecified; Z86.14 Personal history of Methicillin resistant Staphylococcus aureus infection; G47.30 Sleep apnea, unspecified; Z95.0 Presence of cardiac pacemaker; D59.9 Acquired hemolytic anemia, unspecified; Z80.1 Family history of malignant neoplasm of trachea, bronchus and lung; Z82.49 Family history of ischemic heart disease and other diseases of the circulatory system; Z88.8 Allergy status to other drugs, medicaments and biological substances
CPT/HCPCS: 71020; 80048; 85027; 85610; 85730; 87641; C1768; J0690; J1644; J3010

== ENCOUNTER → 2017-03-30 | Outpatient (CLI) | payer OTHER, BC ==
[~2017-03-30] MED LIST changes: +COUMADIN3 MG PO
== END | disposition home or self-care (01) ==
LOC: AMB 13:07
PROC: 02PYX3Z Removal of Infusion Device from Great Vessel, External Approach (ICD-10-PCS; principal; 2017-03-30)
DX: Z45.2 Encounter for adjustment and management of vascular access device (principal); N18.6 End stage renal disease; Z99.2 Dependence on renal dialysis